=== PATIENT | female | born 1985 | race Caucasian/White ===

== ENCOUNTER 2023-01-22 22:31 | Observation (INO) | payer BC, MEDICAID ==
[2023-01-22 23:01] LABS: Appearance Clear (Clear); Bacteria None Seen /HPF (None Seen); Bilirubin Negative (Negative); Blood Negative (Negative); Epithelial Cells Few /HPF (None Seen); Glucose, Urine Negative (Negative); Hyaline Casts NONE SEEN /LPF (0-2); Ketones Negative (Negative); Leukocyte Esterase Negative (Negative); Nitrite Negative (Negative); Protein,Urine Dip Negative (Negative); RBC 0-2 /HPF (0-5); Specific Gravity <=1.005 (1.005-1.030); Urobilinogen 0.2 mg/dL (0.2); WBC 0-2 /HPF (0-5)
[2023-01-22 23:04] LABS: ADD URINE CULTURE? NO (NO)
[2023-01-22 23:12] LABS: Amphetamine,Urine NEGATIVE (NEGATIVE); Barbiturate,Urine NEGATIVE (NEGATIVE); Benzodiazepine,Urine NEGATIVE (NEGATIVE); Cocaine,Urine NEGATIVE (NEGATIVE); Methadone,Urine NEGATIVE (NEGATIVE); Opiate,Urine NEGATIVE (NEGATIVE); PCP,Urine NEGATIVE (NEGATIVE); THC,Urine NEGATIVE (NEGATIVE)
[2023-01-23 05:53] VITALS: O2SAT 98
[2023-01-23 09:08] VITALS: BP 110/68; PULSE 78
--- NOTE | 2023-01-23 10:00 | PCM.NOTE ---
Date and Time: 01/23/23956 Subjective Assessment: pt currently here for evaluation of labor and came in last night for irregular contx with hx of previous csection. pt had previoius sono indicating breech presentation. this morning pt feeling better with minimal contractions and bedside sonogram today indicating continued breech presentation. pt at this time stable for discharge. OBJECTIVE DATA Vital Signs: Vital Signs - 24 hr Temp Pulse Resp BP Pulse Ox 01/23/23 09:00 98.5 F 78 15 110/68 98 01/23/23 05:40 98.5 F 63 18 112/55 98 01/23/23 00:00 98.5 F 67 20 109/53 97 01/22/23 23:34 98.5 F 77 20 102/58 96 Pain Assessment - Last Documented Pain Intensity 1 Intake and Output: Intake & Output 01/20/23 01/21/23 01/22/23 01/23/23 11:59 11:59 11:59 11:59 Intake Total 650 Balance 650 Weight 100.698 kg Lab Results: Lab Results-Last 24 Hours 01/22/23 01/22/23 Range/Units 22:51 22:51 Urine Color Yellow (Yellow) Urine Appearance Clear (Clear) Urine pH 7.0 (4.6-8.0) Ur Specific [place] <=1.005 (1.005-1.030) Urine Protein Negative (Negative) Urine Glucose (UA) Negative (Negative) mg/dL Urine Ketones Negative (Negative) Urine Blood Negative (Negative) Urine Nitrite Negative (Negative) Urine Bilirubin Negative (Negative) Urine Urobilinogen 0.2 (0.2) mg/dL Ur Leukocyte Esterase Negative (Negative) U Hyaline Cast (Auto) NONE SEEN (0-2) /LPF Urine Microscopic RBC 0-2 (0-5) /HPF Urine Microscopic WBC 0-2 (0-5) /HPF Ur Epithelial Cells Few (None Seen) /HPF Urine Bacteria None Seen (None Seen) /HPF Urine Culture Reflexed NO (NO) Urine Opiates Level NEGATIVE (NEGATIVE) Ur Methadone NEGATIVE (NEGATIVE) Urine Barbiturates NEGATIVE (NEGATIVE) Ur Phencyclidine (PCP) NEGATIVE (NEGATIVE) Urine Amphetamine NEGATIVE (NEGATIVE) U Benzodiazepine Level NEGATIVE (NEGATIVE) Urine Cocaine NEGATIVE (NEGATIVE) Urine Marijuana (THC) NEGATIVE (NEGATIVE) Assessment/Plan (1) Threatened labor, antepartum Current Visit: Yes Status: Acute Code(s): O47.9 - FALSE LABOR, UNSPECIFIED (2) Malpresentation of fetus Current Visit: Yes Status: Acute Code(s): O32.9XX0 - MATERNAL CARE FOR MALPRESENTATION OF FETUS, UNSP, UNSP (3) Malpresentation of fetus, antepartum Current Visit: Yes Status: Acute Code(s): O32.9XX0 - MATERNAL CARE FOR MA LPRESENTATION OF FETUS, UNSP, UNSP
--- NOTE | 2023-01-23 10:02 | PCM.DS ---
Discharge Summary Date of Admission: 01/22/23 22:31 Admitting Physician: DEJAN SHAH DO Primary Care Provider: NO FAMILY DOCTOR Allergies Allergies No Known Drug Allergies Allergy (Unverified 01/22/23 22:46) Hospital Summary - Hospital Course Hospital Course: pt came in last night for irregular contx with hx of previous csection wanting to attempt . throughout the night did well and contractions were alleviated and at this time stable for discharge. bedside sonogram showing continued breech presentation. pt at this time stable for discharge and was advised to keep appt tomorrow in office. sourav randolph answered to her satisfaction. ua done and was negative. - Vitals & Intake/Output Vital Signs: Vital Signs Temperature 98.5 F 01/23/23 09:00 Pulse Rate 78 01/23/23 09:00 Respiratory Rate 15 01/23/23 09:00 Blood Pressure 110/68 01/23/23 09:00 O2 Sat by Pulse Oximetry 98 01/23/23 09:00 Intake & Output: Intake & Output 01/20/23 01/21/23 01/22/23 01/23/23 11:59 11:59 11:59 11:59 Intake Total 650 Balance 650 Weight 100.698 kg - Lab Lab Results-Last 24 Hrs: Lab Results-Last 24 Hours 01/22/23 01/22/23 Range/Units 22:51 22:51 Urine Color Yellow (Yellow) Urine Appearance Clear (Clear) Urine pH 7.0 (4.6-8.0) Ur Specific [place] <=1.005 (1.005-1.030) Urine Protein Negative (Negative) Urine Glucose (UA) Negative (Negative) mg/dL Urine Ketones Negative (Negative) Urine Blood Negative (Negative) Urine Nitrite Negative (Negative) Urine Bilirubin Negative (Negative) Urine Urobilinogen 0.2 (0.2) mg/dL Ur Leukocyte Esterase Negative (Negative) U Hyaline Cast (Auto) NONE SEEN (0-2) /LPF Urine Microscopic RBC 0-2 (0-5) /HPF Urine Microscopic WBC 0-2 (0-5) /HPF Ur Epithelial Cells Few (None Seen) /HPF Urine Bacteria None Seen (None Seen) /HPF Urine Culture Reflexed NO (NO) Urine Opiates Level NEGATIVE (NEGATIVE) Ur Methadone NEGATIVE (NEGATIVE) Urine Barbiturates NEGATIVE (NEGATIVE) Ur Phencyclidine (PCP) NEGATIVE (NEGATIVE) Urine Amphetamine NEGATIVE (NEGATIVE) U Benzodiazepine Level NEGATIVE (NEGATIVE) Urine Cocaine NEGATIVE (NEGATIVE) Urine Marijuana (THC) NEGATIVE (NEGATIVE) Final Diagnosis/Problem List - Final Discharge Diagnosis/Problem (1) Threatened labor, antepartum Current Visit: Yes Status: Acute Code(s): O47.9 - FALSE LABOR, UNSPECIFIED (2) Malpresentation of fetus Current Visit: Yes Status: Acute Code(s): O32.9XX0 - MATERNAL CARE FOR MALPRESENTATION OF FETUS, UNSP, UNSP (3) Malpresentation of fetus, antepartum Current Visit: Yes Status: Acute Code(s): O32.9XX0 - MATERNAL CARE FOR MALPRESENTATION OF FETUS, UNSP, UNSP - Discharge Disposition: Home, Self-Care Condition: Stable Prescriptions: No Action Sertraline HCl 50 mg [Zoloft 50 mg Tablet] 50 mg PO DAILY Mv-Mn/Iron/FA/Herbal/Digestive [ One Tablet] 1 tab PO DAILY Follow up with: DOCTOR,NO FAMILY [Primary Care Provider] - DEJAN SHAH DO [ACTIVE STAFF] -
== END 2023-01-23 10:54 | disposition home or self-care (01) ==
LOC: OB 22:31
PROVIDERS: ADMIT Obstetrics & Gynecology; ATTEND Obstetrics & Gynecology
DX: O47.9 False labor, unspecified (principal); O32.1XX0 Maternal care for breech presentation, not applicable or unspecified; Z3A.36 36 weeks gestation of pregnancy; Z20.828 Contact with and (suspected) exposure to other viral communicable diseases
CPT/HCPCS: 36415; 80307; 81001; 84112; G0378; G0379

== ENCOUNTER 2023-02-04 18:27 | Inpatient (IN) | payer BC, MEDICAID ==
[2023-02-04 19:58] LABS: ADD URINE CULTURE? YES (NO); Appearance Clear (Clear); Bacteria Rare /HPF (None Seen); Bilirubin Negative (Negative); Blood Moderate (Negative); Epithelial Cells Moderate /HPF (None Seen); Glucose, Urine Negative (Negative); Hyaline Casts NONE SEEN /LPF (0-2); Ketones 15 (Negative); Leukocyte Esterase Moderate (Negative); Nitrite Negative (Negative); Protein,Urine Dip Negative (Negative); RBC 0-2 /HPF (0-5); Specific Gravity 1.015 (1.005-1.030); Urobilinogen 0.2 mg/dL (0.2)
[2023-02-04 20:31] LABS: Amphetamine,Urine NEGATIVE (NEGATIVE); Barbiturate,Urine NEGATIVE (NEGATIVE); Benzodiazepine,Urine NEGATIVE (NEGATIVE); Cocaine,Urine NEGATIVE (NEGATIVE); Methadone,Urine NEGATIVE (NEGATIVE); Opiate,Urine NEGATIVE (NEGATIVE); PCP,Urine NEGATIVE (NEGATIVE); THC,Urine NEGATIVE (NEGATIVE)
[2023-02-04] MEDS ORDERED: TYLENOL EXTRA STRENGTH 500 MG ONE (20:55)
[2023-02-04] MEDS ORDERED: Ambien 5 MG Tablet ONE (20:55)
[2023-02-04] MEDS ORDERED: ROCEPHIN 1 Gm-D5w 50 ml Bag** 1 G/50 ML IVPB IV ONE (20:56)
[2023-02-04] MEDS ORDERED: Lactated Ringers 2,000 ML IV ONE (20:56)
[2023-02-04] MEDS ORDERED: Lactated Ringers 1,000 ML IV ONE (20:57)
[2023-02-04] MEDS ORDERED: ROCEPHIN 1 Gm-D5w 50 ml Bag** 1 G/50 ML IVPB IV SCH (21:00)
[2023-02-04] MEDS: TYLENOL EXTRA STRENGTH 500 MG PO PRN (21:02)
[2023-02-04] MEDS ORDERED: Ambien 5 MG Tablet PO SCH (22:00)
[2023-02-04] MEDS: Lactated Ringers 1,000 ML IV SCH (22:03)
[2023-02-05] MEDS ORDERED: Reglan 10 MG/2 ML IV ONE (04:57)
[2023-02-05] MEDS ORDERED: SOD CITRATE-CITRIC ACID SOLN PO ONE (04:57)
[2023-02-05] MEDS ORDERED: Pepcid 20 MG VIAL IV ONE (04:57)
[2023-02-05] MEDS ORDERED: CEFAZOLIN 2 GM-D5W BAG** 2 GM/50 ML ML IV ONE (04:57)
[2023-02-05] MEDS ORDERED: Lactated Ringers 1,000 ML IV ONE ×2 (04:57→05:00)
[2023-02-05] MEDS ORDERED: Reglan 10 MG/2 ML IV SCH (05:00)
[2023-02-05] MEDS ORDERED: Pepcid 20 MG VIAL IV SCH (05:00)
[2023-02-05] MEDS ORDERED: CEFAZOLIN 2 GM-D5W BAG** 2 GM/50 ML ML IV SCH (05:00)
[2023-02-05] MEDS ORDERED: SOD CITRATE-CITRIC ACID SOLN PO SCH (05:00)
[2023-02-05 05:06] LABS: Absolute Neutrophil Ct (ANC) 7.83 x10^3/uL (1.4-6.9); BASOPHIL % 0.4 % (0.0-0.4); Basophil (Absolute #) 0.04 x10^3/uL (0-0.4); Eosinophil % 1.3 % (0.00-5.0); Eosinophil (Absolute #) 0.13 x10^3/uL (0-0.5); Hematocrit 40.6 % (35-47); Hemoglobin 13.1 g/dL (12.0-16.0); IMMATURE GRAN # 0.05 x10^3u/L (0.00-0.03); IMMATURE GRAN % 0.5 % (0.00-0.4); Lymphocyte (Absolute #) 1.06 x10^3/uL (1.0-4.6); Lymphocytes % 10.4 % (24.0-44.0); Mean Cell Volume 89.6 fL (78-100); Mean Corpuscular Hemoglobin 28.9 pg (26-32); Mean Corpuscular Hgb Concent. 32.3 g/dL (32-36); Mean Platelet Volume 12.5 fL (7.5-11.0); Monocyte (Absolute #) 1.08 x10^3/uL (0.0-1.3); Monocytes % 10.6 % (0.0-12.0); Neutrophil % 76.8 % (36.0-66.0); Platelet Count 148 x10^3/uL (150-450); Red Blood Count 4.53 x10^6/uL (4.1-5.4); Red Cell Distribution Width 13.5 % (11.5-14.0); White Blood Count 10.2 x10^3/uL (4.0-10.5)
[2023-02-05 05:10] LABS: INR 0.88 (0.8-3.0); PROTIME 9.7 SECONDS (9.4-12.5)
[2023-02-05] MEDS ORDERED: Decadron 4 MG INJ ONE ×2 (05:20→06:04)
[2023-02-05] MEDS ORDERED: Xylocaine-Mpf 2% 5 Ml Vial ONE ×2 (05:20→06:04)
[2023-02-05] MEDS ORDERED: SUBLIMAZE 100 MCG/2 ML ONE ×2 (05:20→05:52)
[2023-02-05] MEDS ORDERED: Zofran 4 MG/2 ML VIAL ONE (05:20)
[2023-02-05] MEDS ORDERED: TORAdol 30 mg Injection ONE (05:20)
[2023-02-05] MEDS ORDERED: BRIDION 200MG/2ML IV ONE (05:20)
[2023-02-05] MEDS ORDERED: DIPRIVAN 200 MG/20 ML IV ONE (05:20)
[2023-02-05 05:47] LABS: ABO TYPING O; Antibody Screen NEGATIVE (NEGATIVE); RH TYPING POSITIVE
[2023-02-05] MEDS ORDERED: DEMEROL 50 MG IV PRN (05:48)
[2023-02-05] MEDS ORDERED: Sodium Chloride 0.9% 10 ML FLUSH Syringe IV PRN (05:48)
[2023-02-05] MEDS ORDERED: Zofran 4 MG/2 ML VIAL IV PRN (05:48)
[2023-02-05] MEDS ORDERED: PERCOCET TABLET 5/325MG PO PRN ×2 (05:48→10:17)
[2023-02-05] MEDS ORDERED: BENADRYL 50 MG/ML IV PRN (05:48)
[2023-02-05] MEDS ORDERED: Nubain 10 MG/ML IV PRN (05:48)
[2023-02-05] MEDS ORDERED: MORPHINE SULFATE 2 MG INJ IV PRN ×2 (05:48→10:19)
[2023-02-05] MEDS ORDERED: Ephedrine Sulfate 50 MG/ML ONE (05:58)
[2023-02-05] MEDS ORDERED: Pitocin 10 UNITS/ML ONE (05:58)
[2023-02-05] MEDS ORDERED: BREVIBLOC 100 MG/10 ML IV ONE (05:59)
[2023-02-05] MEDS ORDERED: HOLD NARCOTIC ANALGESICS AND SEDATIVES X24 HR MC PRN (06:00)
[2023-02-05] MEDS ORDERED: Marcaine 0.5%/Epinephrine 10 ML ONE (06:04)
[2023-02-05] MEDS ORDERED: DEXMEDETOMIDINE 80 MCG/20ML-NS IV ONE (06:04)
[2023-02-05] MEDS: Lactated Ringers 1,000 ML IV SCH (06:09)
[2023-02-05] MEDS ORDERED: Anucort-HC SUPPOSITORY PR PRN (06:35)
[2023-02-05] MEDS ORDERED: CORTISONE 1% CREAM TP PRN (06:35)
[2023-02-05] MEDS ORDERED: LANSINOH 40 GM TOP PRN (06:35)
[2023-02-05] MEDS ORDERED: Dulcolax 10 MG SUPP PR PRN (06:35)
[2023-02-05] MEDS ORDERED: Dermoplast Spray TP PRN (06:35)
[2023-02-05] MEDS ORDERED: CLARITIN 10 MG PO PRN (07:00)
[2023-02-05] MEDS ORDERED: Narcan 0.4 MG/ML IV PRN (07:00)
[2023-02-05] MEDS ORDERED: Quelicin Fliptop 200 MG/10 ML ONE (07:04)
--- NOTE | 2023-02-05 07:12 | XRAY ---
CLINICAL HISTORY:Possible foreign body, no count for sponges; COMPARISON:None; TECHNIQUES:X-ray of abdomen, AP view; FINDINGS: There is curved linear density is seen in the right side of the abdomen, which could be operative dressing it is not clear if it is inside or outside the abdomen. No evidence of a metallic foreign bodies is noted. Bowel gas patterns are all normal and there is no free air around the falciform ligament. No definite radiopaque shadows could be depicted. Scanned osseous structures are unremarkable. IMPRESSION: 1. Right abdominal linear opacity which could be dressing and not clear if it is inside or outside the abdomen. 2. Follow-up with the patient after removing the coverings and by AP and lateral views or CT are advised. Electronically Signed by: Jana Curiel MD. (02/05/2023 06:05:02 FIBERGLASS BOAT MAKER)
[2023-02-05] MEDS: NORCO 5/325 MG PO PRN ×3 (08:08→21:10)
[2023-02-05 08:18] LABS: Appearance Clear (Clear); Bacteria None Seen /HPF (None Seen); Bilirubin Negative (Negative); Blood Negative (Negative); Epithelial Cells None Seen /HPF (None Seen); Glucose, Urine Negative (Negative); Hyaline Casts NONE SEEN /LPF (0-2); Ketones Trace (Negative); Leukocyte Esterase Negative (Negative); Nitrite Negative (Negative); Protein,Urine Dip Negative (Negative); RBC 0-2 /HPF (0-5); Urobilinogen 0.2 mg/dL (0.2); WBC 0-2 /HPF (0-5)
--- NOTE | 2023-02-05 08:50 | XRAY ---
CLINICAL HISTORY:Follow-up to a foreign body. COMPARISON:None; TECHNIQUES:X-ray of the abdomen AP and lateral views. FINDINGS: No evidence of a foreign body is seen. No definite radiopaque shadows could be depicted. A normal bowel gas pattern is seen. Scanned osseous structures are unremarkable. IMPRESSION: 1. No evidence of a foreign body. 2. Previously noted artefactual density is not seen in the current scan. Electronically Signed by: Jana Curiel MD. (02/05/2023 07:46:41 REDUCTION FURNACE OPERATOR)
[2023-02-05] MEDS ORDERED: MORPHINE SULFATE 4 MG INJ IV PRN (10:18)
[2023-02-05 13:28] LABS: Hematocrit 35.5 % (35-47); Hemoglobin 11.5 g/dL (12.0-16.0); Mean Cell Volume 91.5 fL (78-100); Mean Corpuscular Hemoglobin 29.6 pg (26-32); Mean Corpuscular Hgb Concent. 32.4 g/dL (32-36); Mean Platelet Volume 12.2 fL (7.5-11.0); Platelet Count 143 x10^3/uL (150-450); Red Blood Count 3.88 x10^6/uL (4.1-5.4); Red Cell Distribution Width 13.7 % (11.5-14.0); White Blood Count 16.7 x10^3/uL (4.0-10.5)
[2023-02-05] MEDS: CEFAZOLIN 2 GM-D5W BAG** 2 GM/50 ML ML IV SCH ×2 (14:02→22:19)
[2023-02-05] MEDS: Mylicon 80MG PO PRN ×2 (15:20→21:10)
[2023-02-05] MEDS: Dextrose 5%-Lr IV Solution 1000 ML 1,000 ML IV SCH ×2 (15:21→20:59)
[2023-02-05] MEDS: Docusate Sodium 100 MG PO SCH (21:10)
[2023-02-05] MEDS: ZOLOFT 50 MG TABLET PO SCH (21:11)
[2023-02-06] MEDS: MOTRIN 400 MG PO PRN ×3 (01:04→20:44)
[2023-02-06] MEDS: TYLENOL EXTRA STRENGTH 500 MG PO PRN (05:19)
[2023-02-06 05:48] LABS: Absolute Neutrophil Ct (ANC) 9.79 x10^3/uL (1.4-6.9); BASOPHIL % 0.2 % (0.0-0.4); Basophil (Absolute #) 0.02 x10^3/uL (0-0.4); Eosinophil % 0.2 % (0.00-5.0); Eosinophil (Absolute #) 0.02 x10^3/uL (0-0.5); Hematocrit 30.6 % (35-47); Hemoglobin 9.9 g/dL (12.0-16.0); IMMATURE GRAN # 0.08 x10^3u/L (0.00-0.03); IMMATURE GRAN % 0.6 % (0.00-0.4); Lymphocyte (Absolute #) 1.41 x10^3/uL (1.0-4.6); Lymphocytes % 11.4 % (24.0-44.0); Mean Cell Volume 90.5 fL (78-100); Mean Corpuscular Hemoglobin 29.3 pg (26-32); Mean Corpuscular Hgb Concent. 32.4 g/dL (32-36); Mean Platelet Volume 12.5 fL (7.5-11.0); Monocyte (Absolute #) 1.05 x10^3/uL (0.0-1.3); Monocytes % 8.5 % (0.0-12.0); Neutrophil % 79.1 % (36.0-66.0); Platelet Count 133 x10^3/uL (150-450); Red Blood Count 3.38 x10^6/uL (4.1-5.4); Red Cell Distribution Width 14.2 % (11.5-14.0); White Blood Count 12.4 x10^3/uL (4.0-10.5)
[2023-02-06] MEDS ORDERED: FERREX 150 PO SCH (10:00)
[2023-02-06] MEDS ORDERED: Adacel Vial IM ONE (10:00)
[2023-02-06] MEDS: Docusate Sodium 100 MG PO SCH ×2 (10:11→22:17)
[2023-02-06] MEDS: Mylicon 80MG PO PRN (10:13)
--- NOTE | 2023-02-06 10:59 | PCM.NOTE ---
Date and Time: 02/06/23 1056 Subjective Assessment: pod 1 pt resting in bed and doing well ambulating and tolerating diet. vss afebrile abd; soft incision c/d/intact uterus; firm lochia; mild hgb; 9.8 a/p sp csection secondary to cord prolapse will anticipate discharge tomorrow should fu office in 2 wks.. OBJECTIVE DATA Vital Signs: Vital Signs - 24 hr Temp Pulse Resp BP Pulse Ox 02/06/23 08:00 98.2 F 76 18 124/69 99 02/06/23 04:00 98.1 F 70 16 101/60 98 02/06/23 00:00 98.9 F 72 18 109/58 98 02/05/23 20:00 99.3 F 86 17 111/67 97 02/05/23 16:00 98.8 F 79 18 117/80 99 02/05/23 12:46 98.7 F 86 18 127/59 100 02/05/23 12:45 98.7 F 86 18 127/59 100 02/05/23 11:30 98.7 F 81 18 120/65 100 02/05/23 11:00 98.7 F 86 18 111/56 100 Pain Assessment - Last Documented Pain Intensity [Anterior] 2 Pain Intensity 2 Pain Scale Used 0-10 Pain Scale Intake and Output: Intake & Output 02/03/23 02/04/23 02/05/23 02/06/23 11:59 11:59 11:59 11:59 Intake Total 3250 2170 Output Total 1200 5400 Balance 0 -3230 Weight 105.233 kg Lab Results: Lab Results-Last 24 Hours 02/05/23 02/06/23 Range/Units 13:27 05:47 WBC 16.7 H 12.4 H (4.0-10.5) x10^3/uL RBC 3.88 L 3.38 L (4.1-5.4) x10^6/uL Hgb 11.5 L 9.9 L (12.0-16.0) g/dL Hct 35.5 30.6 L (35-47) % MCV 91.5 90.5 (78-100) fL MCH 29.6 29.3 (26-32) pg MCHC 32.4 32.4 (32-36) g/dL RDW 13.7 14.2 H (11.5-14.0) % Plt Count 143 L 133 L (150-450) x10^3/uL MPV 12.2 H 12.5 H (7.5-11.0) fL Gran % 79.1 H (36.0-66.0) % Immature Gran % (Auto) 0.6 H (0.00-0.4) % Nucleat RBC Rel Count 0.0 (0.00-0.1) % Eos # (Auto) 0.02 (0-0.5) x10^3/uL Immature Gran # (Auto) 0.08 H (0.00-0.03) x10^3u/L Absolute Lymphs (auto) 1.41 (1.0-4.6) x10^3/uL Absolute Monos (auto) 1.05 (0.0-1.3) x10^3/uL Absolute Nucleated RBC 0.00 (0.00-0.01) x10^3u/L Lymphocytes % 11.4 L (24.0-44.0) % Monocytes % 8.5 (0.0-12.0) % Eosinophils % 0.2 (0.00-5.0) % Basophils % 0.2 (0.0-0.4) % Absolute Granulocytes 9.79 H (1.4-6.9) x10^3/uL Basophils # 0.02 (0-0.4) x10^3/uL Radiology Exams: Radiology Procedures Category Date Time Status ABDOMEN 2 VIEW Routine Exams 02/05/23 07:44 Completed KUB Stat Exams 02/05/23 05:44 Completed Assessment/Plan (1) S/P repeat low transverse Current Visit: Yes Status: Acute Code(s): Z98.891 - HISTORY OF UTERINE SCAR FROM PREVIOUS SURGERY (2) Umbilical cord, prolapsed Current Visit: Yes Status: Acute Code(s): O69.0XX0 - LABOR AND DELIVERY COMPLICATED BY PROLAPSE OF CORD, UNSP
--- NOTE | 2023-02-06 11:20 | PCM.DS ---
Discharge Summary Date of Admission: 02/05/23 04:10 Admitting Physician: DEJAN SHAH DO Consults: Consults on Case 02/05/23 04:50 Notify Anesthesia Provider ROUTINE 02/05/23 08:00 Notify Physician ROUTINE 02/07/23 08:00 Navigation ONCE Primary Care Provider: NO FAMILY DOCTOR Allergies Allergies No Known Drug Allergies Allergy (Verified 02/04/23 19:27) Hospital Summary - Hospital Course Hospital Course: pt was admitted on february 04 at 38 wks gestation with hx of previous csection and currently known to have baby in transverse lie. pt was admitted for contractions and was kept overnight for evaluation of contractions and was given iv hydration and subsequently had srom on february 05 early am with noted cord prolapse. pt subsequently underwent emergency csection and delivered live baby girl without complication. during postop period did well and had stable hgb level at 9.8. pt was able to ambulate and tolerate diet and at this time stable for discharge on february 07. pt advised to fu in office in 2 wks for postop evaluation and was given percocet for pain management. - Vitals & Intake/Output Vital Signs: Vital Signs Temperature 98.2 F 02/06/23 08:00 Pulse Rate 76 02/06/23 08:00 Respiratory Rate 18 02/06/23 08:00 Blood Pressure 124/69 02/06/23 08:00 O2 Sat by Pulse Oximetry 99 02/06/23 08:00 Intake & Output: Intake & Output 02/03/23 02/04/23 02/05/23 02/06/23 11:59 11:59 11:59 11:59 Intake Total 3250 2170 Output Total 1200 5400 Balance 2050 -3230 Weight 105.233 kg - Lab Result Diagrams: 02/06/23 05:47 Lab Results-Last 24 Hrs: Lab Results-Last 24 Hours 02/05/23 02/06/23 Range/Units 13:27 05:47 WBC 16.7 H 12.4 H (4.0-10.5) x10^3/uL RBC 3.88 L 3.38 L (4.1-5.4) x10^6/uL Hgb 11.5 L 9.9 L (12.0-16.0) g/dL Hct 35.5 30.6 L (35-47) % MCV 91.5 90.5 (78-100) fL MCH 29.6 29.3 (26-32) pg MCHC 32.4 32.4 (32-36) g/dL RDW 13.7 14.2 H (11.5-14.0) % Plt Count 143 L 133 L (150-450) x10^3/uL MPV 12.2 H 12.5 H (7.5-11.0) fL Gran % 79.1 H (36.0-66.0) % Immature Gran % (Auto) 0.6 H (0.00-0.4) % Nucleat RBC Rel Count 0.0 (0.00-0.1) % Eos # (Auto) 0.02 (0-0.5) x10^3/uL Immature Gran # (Auto) 0.08 H (0.00-0.03) x10^3u/L Absolute Lymphs (auto) 1.41 (1.0-4.6) x10^3/uL Absolute Monos (auto) 1.05 (0.0-1.3) x10^3/uL Absolute Nucleated RBC 0.00 (0.00-0.01) x10^3u/L Lymphocytes % 11.4 L (24.0-44.0) % Monocytes % 8.5 (0.0-12.0) % Eosinophils % 0.2 (0.00-5.0) % Basophils % 0.2 (0.0-0.4) % Absolute Granulocytes 9.79 H (1.4-6.9) x10^3/uL Basophils # 0.02 (0-0.4) x10^3/uL Micro Results-Entire Visit: Microbiology 02/05/23 05:23 Urine Culture - Preliminary Catherized NO GROWTH TO DATE 02/04/23 19:24 Urine Culture - Final Clean Catch Midstream <10K NORMAL SKIN LON PROBABLE SKIN CONTAMINANT - Radiology Exams Ordered Rad Exams-Entire Visit: Radiology Procedures Category Date Time Status ABDOMEN 2 VIEW Routine Exams 02/05/23 07:44 Completed KUB Stat Exams 02/05/23 05:44 Completed - Procedures and Test Procedures and Tests throughout Hospitalization: Therapy Orders & Screens 02/05/23 06:14 Standby STAT Comment: Diagnosis: URGENT REPEAT Final Diagnosis/Problem List - Final Discharge Diagnosis/Problem (1) S/P repeat low transverse Current Visit: Yes Status: Acute Code(s): Z98.891 - HISTORY OF UTERINE SCAR FROM PREVIOUS SURGERY (2) Umbilical cord, prolapsed Current Visit: Yes Status: Acute Code(s): O69.0XX0 - LABOR AND DELIVERY COMPLICATED BY PROLAPSE OF CORD, UNSP - Discharge Disposition: Home, Self-Care Condition: Stable Prescriptions: New Oxycodone HCl/Acetaminophen [Oxycodone-Acetaminophen 5-325] 1 each PO Q6HPRN PRN #20 tablet MDD 4 PRN Reason: Pain No Action Sertraline HCl 50 mg [Zoloft 50 mg Tablet] 50 mg PO DAILY Mv-Mn/Iron/FA/Herbal/Digestive [ One Tablet] 1 tab PO DAILY Follow up with: DOCTOR,NO FAMILY [Primary Care Provider] - DEJAN SHAH DO [ACTIVE STAFF] - 2 weeks (should fu in office in 2 wks no heavy lifting)
[2023-02-06] MEDS: ZOLOFT 50 MG TABLET PO SCH (22:17)
[2023-02-07 02:28] VITALS: BP 111/60; PULSE 82; O2SAT 97
[2023-02-07] MEDS ORDERED: MORPHINE SULFATE 2 MG INJ IV PRN (07:45)
--- NOTE | 2023-02-07 09:46 | OP ---
SURGERY DATE/TIME: 02/05/2023 0519 PREOPERATIVE DIAGNOSIS: Intrauterine at 38 weeks gestation with previous section with current cord prolapse and transverse lie. POSTOPERATIVE DIAGNOSIS: Intrauterine at 38 weeks gestation with previous section with current cord prolapse and transverse lie. PROCEDURE: Repeat section, low flap transverse uterine incision, Pfannenstiel skin incision. SURGEON: Bala Moreno D.O. ESTATE TAX EXAMINER: Pat Henao, software technician. ANESTHESIA: General. ESTIMATED BLOOD LOSS: 500 cc. COMPLICATIONS: None. INDICATIONS: The risks, benefits, indications and alternatives of the procedure were reviewed with the patient prior to procedure. The patient understood the risk of infection, bleeding, bowel injury, bladder injury, ureteral injury, uterine perforation, pelvic infection, thromboembolic disorder associated with the surgery and desires to have this surgery as a possible means to alleviate her current medical condition. DESCRIPTION OF PROCEDURE AND FINDINGS: At this point the patient is taken to the operating room in an emergency situation where she was placed under general anesthesia which was found to be adequate. She was then prepped and draped in normal sterile fashion in the dorsal supine position with leftward tilt. A Pfannenstiel skin incision is made with a scalpel and carried through to the underlying layer of the fascia with a scalpel. The fascia was then incised in the midline and the incision extended laterally with Menendez scissors. The superior aspect of the fascial incision was then grasped Jeison clamps elevated and the underlying rectus muscles dissected off bluntly. Attention is then turned to the inferior aspect of this incision which in similar fashion was grasped, tented up with Jeison clamps and the rectus muscles dissected off bluntly. The rectus muscles were then at the midline and the peritoneum identified, tented up and entered sharply with Metzenbaum scissors. The peritoneal incision was then extended superiorly and inferiorly with good visualization of the bladder. The bladder blade was then inserted and the vesicouterine peritoneum identified, grasped with a pickup and entered sharply with Metzenbaum scissors. This incision was then extended laterally and the bladder flap created digitally. The bladder blade was then re-inserted and the lower uterine segment incised in transverse fashion with a scalpel. The uterine incision was then extended laterally with bandage scissors. The bladder blade was then removed and the infant was noted to be in transverse lie with the head in the middle quadrant region where the baby's lower extremity was delivered first followed by buttocks, followed by the upper trunk and finally the head. The nose and mouth were suctioned with bulb suction and the cord clamped and cut. The infant was then handed off to the awaiting nurses. The placenta was then removed manually. The uterus exteriorized and cleared of all clots and debris. The uterine incision was repaired with 1-0 chromic in a running locked fashion. A second layer of the same suture was used to obtain excellent hemostasis. At this point the uterus is then returned to the abdomen. The gutters were cleared of all clots and the peritoneal muscles closed in interrupted fashion using 2-0 chromic suture. The fascia was re-approximated with 0 Vicryl in running fashion. The subcutaneous layer was closed with 3-0 plain suture and the skin was closed with absorbable eyad called INSORB. The patient tolerated the procedure well. Sponge, lap, needle and instrument counts were correct x2. The patient was then taken to the recovery room in stable condition. The patient delivered a live baby girl at 0533 hours. The weight of the baby was 5 pounds 7.4 ounces. 's were 5, 9 and 9.
== END 2023-02-07 11:35 | disposition home or self-care (01) | DRG 788 ==
LOC: OB 18:27 → MED SURG 18:27 → UNDOADMOB 18:27 → OBSVTOIN 02-05 04:10 → MED SURG 02-06 12:48
PROVIDERS: ADMIT Obstetrics & Gynecology; ATTEND Obstetrics & Gynecology
PROC: 10D00Z1 Extraction of Products of Conception, Low, Open Approach (ICD-10-PCS; principal; 2023-02-05)
DX: O69.0XX0 Labor and delivery complicated by prolapse of cord, not applicable or unspecified (principal); O64.8XX0 Obstructed labor due to other malposition and malpresentation, not applicable or unspecified; Z3A.38 38 weeks gestation of pregnancy; Z37.0 Single live birth; Z20.828 Contact with and (suspected) exposure to other viral communicable diseases
CPT/HCPCS: 36415; 64488; 74018; 74021; 76937; 80307; 81001; 84112; 85025; 85027; 85610; 85730; 86850; 86900; 86901; 87086; 90471; 90715; 94799; G0378; G0379; J0330; J0690; J0696; J1100; J1885; J2405; J2590; J2704; J3010; L0625; A9270-GY